=== PATIENT | female | born 1985 | race Caucasian/White ===

== ENCOUNTER 2017-02-04 22:10 | Outpatient (CLI) | payer OTHER ==
[~2017-02-04] VITALS: Ht 177.8 cm; Wt 213.0 kg
[2017-02-04 22:45] VITALS: BP 130/65
[2017-02-04] MEDS ORDERED: PRENTAB9 PO (22:53)
[2017-02-04] MEDS ORDERED: TUMS500C PO (22:53)
== END 2017-02-04 23:47 | disposition home or self-care (01) ==
LOC: M LDO 22:10
PROVIDERS: ATTEND Obstetrics & Gynecology
DX: O47.1 False labor at or after 37 completed weeks of gestation (principal); Z3A.39 39 weeks gestation of pregnancy; Z88.2 Allergy status to sulfonamides

== ENCOUNTER 2017-02-05 02:40 | Inpatient (IN) | payer OTHER ==
[2017-02-05] MEDS: DOCUSATE SODIUM 100 MG CAP PO SCH ×2 (00:07→08:17)
[~2017-02-05 02:40] MED LIST: PRENTAB9 PO; TUMS500C PO
[2017-02-05] MEDS ORDERED: FENTANYL 2MCG/ML ROPIVACAINE 0.2% IN 0.9% NACL 200ML IVBAG As Ordered ONE (04:47)
[2017-02-05] MEDS ORDERED: LACTATED RINGER'S 1000 ML IV STA (04:59)
[2017-02-05] MEDS ORDERED: OXYTOCIN 30 UNITS IN 0.9% NaCl 500ML IV BAG (J2590) As Ordered ONE (05:09)
[2017-02-05 06:07] LABS: MEAN CORPUSCULAR HEMOGLOBIN 30.8 pg (27.0-33.0); MEAN CORPUSCULAR HGB CONC 33.6 g/dl (32.0-36.5); MEAN CORPUSCULAR VOLUME 91.7 fl (80.0-96.0); RED CELL DISTRIBUTION WIDTH 13.8 % (11.5-14.5); WHITE BLOOD COUNT 15.6 10^3/uL (4.0-10.0)
[2017-02-05] MEDS ORDERED: OXYTOCIN DRIP 30 UNITS in APPROPRIATE DILUENT 1 EA IV SCH (06:19)
[2017-02-05] MEDS ORDERED: METHYLERGONOVINE MALEATE 0.2 MG/ML VIAL (J2210) IM PRN (06:30)
[2017-02-05] MEDS ORDERED: MEASLES,MUMPS,RUBELLA VACCINE INJ (MMR-II) (90707) SC SCH (06:30)
[2017-02-05] MEDS ORDERED: PROMETHAZINE 25 MG TAB PO PRN (06:30)
[2017-02-05] MEDS ORDERED: ONDANSETRON 4MG/2ML VIAL (J2405) IV PRN (06:30)
[2017-02-05] MEDS ORDERED: DIBUCAINE 1% OINTMENT 30GM TOP PRN (06:30)
[2017-02-05] MEDS ORDERED: LIDOCAINE 1% MDV INJ 50 ML VIAL INFIL ONE (06:30)
[2017-02-05] MEDS ORDERED: RHOGAM 300 MCG (1500 IU) INJ (J2790) IM SCH (06:30)
[2017-02-05] MEDS: PRENATAL VITAMINS CHEWABLE TABLET PO SCH (08:18)
[2017-02-05] MEDS: IBUPROFEN 800 MG TAB PO PRN ×2 (08:18→16:20)
[2017-02-05 09:00] VITALS: BP 104/56
[2017-02-05] MEDS: ACETAMINOPHEN 500 MG TAB PO PRN ×2 (12:01→19:51)
[2017-02-05 17:55] VITALS: BP 131/60
[2017-02-06] MEDS: IBUPROFEN 800 MG TAB PO PRN ×2 (00:07→07:57)
[2017-02-06 06:00] VITALS: BP 111/59
[2017-02-06] MEDS: DOCUSATE SODIUM 100 MG CAP PO SCH (07:56)
[2017-02-06] MEDS: PRENATAL VITAMINS CHEWABLE TABLET PO SCH (07:57)
[2017-02-06] MEDS ORDERED: IBUP-1114 PO (11:21)
[2017-02-06] MEDS ORDERED: COLA100C5 PO (11:21)
[2017-02-06] MEDS ORDERED: ACET50TA PO (11:21)
== END 2017-02-06 15:00 | disposition home or self-care (01) | DRG 775 ==
LOC: M LDO 02:40 → M LDI 03:34 → M OBS 08:55
PROVIDERS: ADMIT Obstetrics & Gynecology; ATTEND Obstetrics & Gynecology
PROC: 10E0XZZ Delivery of Products of Conception, External Approach (ICD-10-PCS; principal; 2017-02-05)
PROC: 0HQ9XZZ Repair Perineum Skin, External Approach (ICD-10-PCS; 2017-02-05)
DX: O70.0 First degree perineal laceration during delivery (principal); Z37.0 Single live birth; Z3A.39 39 weeks gestation of pregnancy

== ENCOUNTER 2017-11-28 09:27 | Day surgery (SDC) | payer OTHER ==
[2017-11-28] MEDS ORDERED: PROPOFOL 200 MG/20 ML VIAL As Ordered ×2 (09:33)
[2017-11-28] MEDS ORDERED: LIDOCAINE 2% INJ 100 MG/5 ML SDV (FOR ANES.) As Ordered (09:33)
[2017-11-28] MEDS: NS 1,000 ML IV (09:39)
[2017-11-28] MEDS ORDERED: MIDAZOLAM INJ 2 MG/2 ML VIAL (J2250) As Ordered (10:14)
[2017-11-28] MEDS ORDERED: fentaNYL 100 MCG/2 ML INJECTION (J3010) As Ordered (10:17)
== END 2017-11-28 10:53 | disposition home or self-care (01) ==
LOC: M OPP 09:27
DX: K59.00 Constipation, unspecified (principal); K64.8 Other hemorrhoids; K58.9 Irritable bowel syndrome, unspecified; Z88.2 Allergy status to sulfonamides; Z79.899 Other long term (current) drug therapy
CPT/HCPCS: 45378

== ENCOUNTER → 2017-12-22 | Outpatient (CLI) | payer OTHER | LOC: M LRY 19:00 | DX: R07.81 Pleurodynia (principal) | CPT/HCPCS: G0463 ==

== ENCOUNTER → 2018-09-11 | Outpatient (CLI) | payer OTHER ==
[~2018-09-11] MED LIST changes: +COLA100C5 PO; +IBUP-1114 PO; +MAPA500T2 PO; +NUVAMIS2 PV; +SENN8.6T17 PO; +[UNRECOGNIZED DRUG - OTHER] PO
--- NOTE | 2018-09-11 16:50 | REP ---
Right index finger four views : There is no fracture or dislocation. Mineralization and joint spaces are normal. There are no calcifications or foreign bodies. Impression: Negative right index finger . Electronically Signed by Ambrocio Stanley MD 09/11/2018 04:42 P
== END ==
LOC: M LRY 15:59
PROVIDERS: ATTEND Physician Assistant
DX: M79.644 Pain in right finger(s) (principal)
CPT/HCPCS: 73140; G0463

== ENCOUNTER → 2019-03-05 | Outpatient (REF) | payer OTHER | LOC: M LAB REF 16:21 | PROVIDERS: ATTEND Nurse Practitioner Family | DX: L08.9 Local infection of the skin and subcutaneous tissue, unspecified (principal) ==

== ENCOUNTER → 2019-05-10 | Outpatient (REF) | payer OTHER | LOC: M LAB REF 20:47 | PROVIDERS: ATTEND Physician Assistant | DX: K13.70 Unspecified lesions of oral mucosa (principal) ==

== ENCOUNTER → 2019-08-12 | Outpatient (REF) | payer OTHER | LOC: M LAB REF 16:09 | PROVIDERS: ATTEND Nurse Practitioner Family | DX: L08.9 Local infection of the skin and subcutaneous tissue, unspecified (principal) ==

== ENCOUNTER → 2019-09-02 | Outpatient (REF) | LOC: M LAB REF 17:14 | PROVIDERS: ATTEND Family Medicine | DX: Z00.00 Encounter for general adult medical examination without abnormal findings (principal) ==

== ENCOUNTER → 2023-06-20 | Outpatient (CLI) | payer OTHER ==
[~2023-06-20] MED LIST changes: +ETON1VAG7 PV; -NUVAMIS2 PV
[2023-06-20 15:06] LABS: BASO % 0.3 % (0.0-1.0); EOS # 0.1 10^3/uL (0.0-0.5); EOS % 2.1 % (0.0-3.0); HEMATOCRIT 39.1 % (36.0-47.0); HEMOGLOBIN 12.6 g/dl (12.0-15.5); LYMPH # 2.2 10^3/uL (1.5-5.0); LYMPH % 36.4 % (24.0-44.0); MEAN CORPUSCULAR HEMOGLOBIN 29.4 pg (27.0-33.0); MEAN CORPUSCULAR HGB CONC 32.2 g/dl (32.0-36.5); MEAN CORPUSCULAR VOLUME 91.4 fl (80.0-96.0); MONO # 0.3 10^3/uL (0.0-0.8); MONO % 5.6 % (2.0-8.0); NEUTROPHILS # 3.4 10^3/uL (1.5-8.5); NEUTROPHILS % 55.4 % (36.0-66.0); PLATELET COUNT, AUTOMATED 224 10^3/uL (150-450); RED BLOOD COUNT 4.28 10^6/uL (4.00-5.40); WHITE BLOOD COUNT 6.1 10^3/uL (4.0-10.0)
[2023-06-20 15:29] LABS: BLOOD UREA NITROGEN 18 MG/DL (9-23); CARBON DIOXIDE LEVEL 28 MMOL/L (20-31); CHLORIDE LEVEL 108 MMOL/L (98-107); CREATININE FOR GFR 0.74 MG/DL (0.55-1.30); GLOMERULAR FILTRATION RATE > 60.0 (>60); GLUCOSE, FASTING 107 MG/DL (60-100); SODIUM LEVEL 141 MMOL/L (136-145)
[2023-06-20 15:32] LABS: THYROID STIMULATING HORMONE 1.749 uIU/ML (0.55-4.78)
[2023-06-20 15:39] LABS: HEMOGLOBIN A1c 5.2 % (4.0-6.0)
== END ==
LOC: M RAD 14:02
PROVIDERS: ATTEND Nurse Practitioner Adult Health
DX: R63.5 Abnormal weight gain (principal); K59.01 Slow transit constipation

== ENCOUNTER → 2023-07-19 | Outpatient (CLI) | payer OTHER | LOC: M LAB 11:47 | PROVIDERS: ATTEND Family Medicine | DX: R63.5 Abnormal weight gain (principal) ==

== ENCOUNTER → 2023-08-31 | Outpatient (CLI) | payer OTHER | LOC: M RAD 16:54 | PROVIDERS: ATTEND Nurse Practitioner Adult Health | DX: M50.10 Cervical disc disorder with radiculopathy, unspecified cervical region (principal) ==

== ENCOUNTER → 2023-10-28 | Outpatient (CLI) | payer OTHER | LOC: M RAD 14:40 | PROVIDERS: ATTEND Nurse Practitioner Adult Health | DX: M65.841 Other synovitis and tenosynovitis, right hand (principal); S66.112A Strain of flexor muscle, fascia and tendon of right middle finger at wrist and hand level, initial encounter ==

== ENCOUNTER → 2024-11-04 | Outpatient (REF) | payer OTHER | LOC: M LAB REF 16:57 | PROVIDERS: ATTEND Family Medicine | DX: N39.46 Mixed incontinence (principal) ==